=== PATIENT | male | born 1985 | race Hispanic/Latino ===

== ENCOUNTER 2019-01-15 07:51 | Emergency (ER) | payer OTHER ==
[2019-01-15] MEDS ORDERED: NACL 0.9% 1000 ML 1,000 ML IV ONE (08:28)
--- NOTE | 2019-01-15 08:43 | Emergency Department Report ---
ED Abdominal Pain HPI - General Chief Complaint: Nausea/Vomiting/Diarrhea Stated Complaint: MH/N/V Time Seen by Provider: 01/15/19 08:26 Source: EMS Mode of arrival: Stretcher Limitations: No Limitations - History of Present Illness Initial Comments: This is a 34-year-old man who is an inpatient in the [facility]. He was sent for vomiting and right upper quadrant pain. He states that this began last night. He is not currently vomiting or feeling nauseated. He does not refer any fever or chills. Pain doesn't radiate. It was a dull ache in the right upper quadrant. Patient states that he was transported to psychiatric facility on a 1013 because he had a "biochemical theory". He states he voluntarily went with the design assembler to the hospital. 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 Complaint: abdominal pain -: Gradual, hour(s) Location: RUQ Radiation: none Migration to: no migration Severity: moderate Quality: aching Consistency: intermittent, now resolved Improves With: nothing Worsens With: nothing Context: other (psychiatric hospitalization) Associated Symptoms: nausea, vomiting - Related Data Allergies Allergy/AdvReac Type Severity Reaction Status Date / Time No Known Allergies Allergy Unverified 01/15/19 13:11 ED Review of Systems ROS: Stated complaint: MH/N/V Other details as noted in HPI Constitutional: denies: chills, fever Eyes: denies: eye pain, eye discharge, vision change ENT: denies: ear pain, throat pain Respiratory: denies: cough, shortness of breath, wheezing Cardiovascular: denies: chest pain, palpitations Endocrine: no symptoms reported Gastrointestinal: abdominal pain, nausea, vomiting. denies: diarrhea Genitourinary: denies: urgency, dysuria Musculoskeletal: denies: back pain, joint swelling, arthralgia Skin: denies: rash, lesions Neurological: denies: headache, weakness, paresthesias Psychiatric: as per HPI, other (delusions). denies: anxiety, depression Hematological/Lymphatic: denies: easy bleeding, easy bruising ED Past Medical Hx - Past Medical History Hx Psychiatric Treatment: Yes (Delusional psychotic) - Surgical History Past Surgical History?: Yes Additional Surgical History: Right shoulder - Social History Smoking Status: Never Smoker Substance Use Type: None ED Physical Exam - General Limitations: No Limitations General appearance: alert, in no apparent distress, other (looks quite well) - Head Head exam: Present: atraumatic, normocephalic - Eye Eye exam: Present: normal appearance. Absent: scleral icterus - ENT ENT exam: Present: mucous membranes moist - Neck Neck exam: Present: normal inspection. Absent: tenderness, meningismus - Respiratory Respiratory exam: Present: normal lung sounds bilaterally. Absent: respiratory distress - Cardiovascular Cardiovascular Exam: Present: regular rate, normal rhythm. Absent: systolic murmur, diastolic murmur, rubs, gallop - GI/Abdominal GI/Abdominal exam: Present: soft, normal bowel sounds. Absent: distended, tenderness, guarding, rebound, rigid, organomegaly, mass, bruit, pulsatile mass, hernia - Rectal Rectal exam: Present: deferred - Extremities Exam Extremities exam: Present: normal inspection - Back Exam Back exam: Present: normal inspection. Absent: CVA tenderness (R), CVA tenderness (L) - Neurological Exam Neurological exam: Present: alert, oriented X3, CN II-XII intact. Absent: motor sensory deficit - Psychiatric Psychiatric exam: Present: normal mood, flat affect - Skin Skin exam: Present: warm, dry, intact, normal color. Absent: rash ED Course Vital Signs 01/15/19 01/15/19 01/15/19 07:55 08:29 08:30 Temperature 98.7 F Pulse Rate 108 H Respiratory 16 Rate Blood Pressure 123/79 113/78 O2 Sat by Pulse 95 94 96 Oximetry 01/15/19 01/15/19 01/15/19 08:47 09:01 09:30 Temperature Pulse Rate Respiratory Rate Blood Pressure 115/71 117/75 115/71 O2 Sat by Pulse Oximetry 01/15/19 10:00 Temperature Pulse Rate Respiratory Rate Blood Pressure 110/65 O2 Sat by Pulse Oximetry ED Medical Decision Making - Lab Data Result diagrams: 01/15/19 08:40 01/15/19 08:40 Critical care attestation.: If time is entered above; I have spent that time in minutes in the direct care of this critically ill patient, excluding procedure time. ED Disposition Clinical Impression: Psychiatric disorder Abdominal pain Qualifiers: Abdominal location: right upper quadrant Qualified Code(s): R10.11 - Right upper quadrant pain Disposition: DC-01 TO HOME OR SELFCARE Is pt being admited?: No Does the pt Need Aspirin: No Condition: Stable Instructions: Abdominal Pain (ED) Additional Instructions: Tylenol for pain. Return any acute change or problem. Time of Disposition: 13:20
[2019-01-15 08:52] LABS: Basophils # (Auto) 0.1 K/mm3 (0.0-0.1); Basophils % (Auto) 0.6 % (0.0-1.8); Eosinophils # (Auto) 0.1 K/mm3 (0.0-0.4); Eosinophils % (Auto) 0.5 % (0.0-4.3); Hematocrit 48.1 % (35.5-45.6); Hemoglobin 16.8 gm/dl (11.8-15.2); Lymphocytes # (Auto) 1.5 K/mm3 (1.2-5.4); Lymphocytes % (Auto) 10.6 % (13.4-35.0); Mean Corpuscular HGB Conc 35 % (32-34); Mean Corpuscular Volume 90 fl (84-94); Monocytes # (Auto) 0.8 K/mm3 (0.0-0.8); Monocytes % (Auto) 5.3 % (0.0-7.3); Platelet Count 306 K/mm3 (140-440); Red Blood Count 5.36 M/mm3 (3.65-5.03); Red Cell Distribution Width 13.4 % (13.2-15.2)
[2019-01-15 09:09] LABS: Alanine Aminotransferase 22 units/L (7-56); Albumin 4.7 g/dL (3.9-5); BUN/Creatinine Ratio 11; Blood Urea Nitrogen 10 mg/dL (9-20); Calcium 9.2 mg/dL (8.4-10.2); Hemolysis Index 8
[2019-01-15 09:16] LABS: INR 0.94 (0.87-1.13)
[2019-01-15 09:17] LABS: Partial Thromboplastin Time 31.6 Sec. (24.2-36.6)
[2019-01-15 09:25] LABS: Bilirubin,Direct < 0.2 mg/dL (0-0.2)
[2019-01-15 10:57] LABS: Bilirubin,Urine NEG (Negative); Blood,Urine NEG (Negative); Color,Urine Yellow (Yellow); Mucus,Urine FEW /HPF; Protein,Urine <15 mg/dL mg/dL (Negative); Urobilinogen,Urine < 2.0 mg/dL (<2.0); WBC,Urine < 1.0 /HPF (0.0-6.0)
--- NOTE | 2019-01-15 11:18 | Ultrasound Report ---
PROCEDURE: US ABDOMEN LIMITED TECHNIQUE: Transverse longitudinal sonograms obtained with torres scale sonography. HISTORY: right upper quadrant pain COMPARISONS: None FINDINGS: Liver demonstrates normal size and echogenicity without focal lesion. Gallbladder is unremarkable. No cholelithiasis. No signs. Normal gallbladder wall thickness. No biliary dilatation. Common bile duct diameter is 0.2 cm. Pancreas not well-visualized. Visualized portion unremarkable. Right kidney measures 11.1 x 5.0 x 5.7 cm. Normal cortical thickness and echogenicity. No hydronephro sis Visualized aorta unremarkable. No free fluid. IMPRESSION: The gallbladder is unremarkable. No cholelithiasis No biliary dilatation No right hydronephrosis No free fluid. This document is electronically signed by Roberto Qureshi MD., January 15 2019 11:16:36 AM ET
--- NOTE | 2019-01-15 12:50 | Cat Scan Report ---
PROCEDURE: CT ABDOMEN PELVIS W CON TECHNIQUE: CT examination of the abdomen after IV contrast CT examination of the pelvis after IV contrast HISTORY: RUQ PAIN COMPARISONS: Abdomen ultrasound 01/15/2019 FINDINGS: No acute lung base finding. No acute fracture. Normal-appearing liver, gallbladder, adrenals, pancrea s, and spleen. Intact normal caliber abdominal aorta and IVC. Normal-appearing kidneys and ureters. V dylon small fat-containing umbilical hernia. Very small fat-containing left inguinal hernia. No retrope ritoneal adenopathy. No evidence of mesenteric mass. Normal-appearing stomach and duodenum. No small bowel distention in the abdomen and pelvis. No pelvic free fluid. Normal-appearing urinary bladder, prostate, seminal vesicles, and rectum. Maris l-appearing sigmoid colon. No gross ascites, free air, or colonic distention. Normal-appearing cecum, terminal ileum, and retrocecal appendix. IMPRESSION: No CT evidence of acute pathology in the abdomen and pelvis This document is electronically signed by Benson Hogan MD., January 15 2019 12:48:08 PM ET
[2019-01-15 13:48] VITALS: BP 104/65
== END 2019-01-15 14:27 | disposition home or self-care (01) ==
LOC: ED 07:51
DX: R10.11 Right upper quadrant pain (principal); R11.10 Vomiting, unspecified; F22 Delusional disorders; F99 Mental disorder, not otherwise specified
CPT/HCPCS: 36415; 74177; 76705; 80048; 80076; 81001; 83690; 83735; 85025; 85610; 85730; 99284; J7030; Q9967